=== PATIENT | male | born 1990 | race African-American/Black ===

== ENCOUNTER 2017-06-28 17:05 | Emergency (ER) | payer SELFPAY ==
[~2017-06-28] VITALS: Ht 175.3 cm; Wt 81.6 kg
[2017-06-28 17:11] VITALS: BP 105/66
--- NOTE | 2017-06-28 17:41 | Emergency Room Report ---
History of Present Illness General Chief Complaint: Lower Extremity Injury Source: Patient Present Illness HPI 26-year-old male presents to the emergency department complaining of 8 out of 10 in severity pain, swelling, tenderness to the left knee 2 weeks. Patient reports acute onset of his symptoms after he hit his knee against a night- stand. Patient states she's been trying rest and ice however he states that his symptoms have not resolved and he continues to have pain. 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 Patient denies history of injuries to this extremity in the past. Denies numbness tingling or loss of sensation or gross motor movements of the extremities, incontinence of bowel or bladder. Denies CP, Palpitations, LOC, AMS , dizziness, Changes in Vision, Sensation, paresthesias, or a sudden severe headache. Allergies: Coded Allergies: No Known Allergies (Unverified , 06/28/17) Patient History Past Medical History: see triage record Past Surgical History: none Pertinent Family History: none Reviewed Nursing Documentation: PMH: Agreed; PSxH: Agreed Nursing Documentation-PMH Past Medical History: No Stated History Review of Systems All Other Systems: negative except mentioned in HPI Physical Exam Vital Signs Date Time Temp Pulse Resp B/P (MAP) Pulse Ox O2 Delivery O2 Flow Rate FiO2 06/28/17 17:11 97.4 62 18 105/66 98 Room Air 97.3 Sp02 EP Interpretation: reviewed, normal General Appearance: no apparent distress, alert, GCS 15, non-toxic Head: normocephalic, atraumatic ENT: hearing grossly normal, normal voice Neck: full range of motion Respiratory: lungs clear, normal breath sounds, speaking full sentences Cardiovascular #1: regular rate, rhythm, no edema Genitourinary: normal inspection Musculoskeletal: back normal, gait/station normal - compensating on the right side, normal range of motion, swelling - left lateral upper quadrant of the knee , other - no increased laxity upon varus or valgus stressing, negative anterior and posterior drawer signs on examination of the left knee Neurologic: alert, oriented x3, responsive, motor strength/tone normal, sensory intact, speech normal, grossly normal Psychiatric: judgement/insight normal Skin: normal color, no rash, warm/dry, well hydrated Medical Decision Making PA Attestation Dr. Bishop is my supervising Physician whom patient management has been discussed with. Diagnostic Impression: Primary Impression: Knee pain, left Qualified Codes: M25.562 - Pain in left knee Additional Impression: Knee effusion, left ER Course 26-year-old male presents to the emergency department complaining of 8 out of 10 in severity pain, swelling, tenderness to the left knee 2 weeks. Patient reports acute onset of his symptoms after he hit his knee against a night- stand. Patient states she's been trying rest and ice however he states that his symptoms have not resolved and he continues to have pain. 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 Patient denies history of injuries to this extremity in the past. Denies numbness tingling or loss of sensation or gross motor movements of the extremities, incontinence of bowel or bladder. Denies CP, Palpitations, LOC, AMS , dizziness, Changes in Vision, Sensation, paresthesias, or a sudden severe headache. Ddx considered but are not limited to Fracture, dislocation, contusion, Sprain/ Strain/Spasm, meniscal injury just to name a few Vital signs: are WNL, pt. is afebrile H&PE are most consistent with musculoskeletal injury will perform imaging to r/ o fractures/dislocations. ORDERS: - X-ray Left Knee 3 views - negative for fx, Dislocation, or significant soft tissue injury, per preliminary read in ED, and signed by BOY Dozier , my supervising physician has reviewed, and agrees with my interpretation. ED INTERVENTIONS: - Left knee immobilizer applied by sonography technician. to the left knee, Pt. remains neurovascularly intact. -Patient is provided with crutches and instructed on their use DISCHARGE: At this time pt. is stable for d/c to home. Will provide printed patient care instructions, and any necessary prescriptions. Care plan and follow up instructions have been discussed with the patient prior to discharge. Other X-Ray Diagnostic Results Other X-Ray Diagnostic Results : X-Ray ordered: Left Knee # of Views/Limited Vs Complete: 3 View Indication: Pain EP Interpretation: Yes BOY Xray: Interpretation reviewed, by supervising MD, and agrees with findings. Interpretation: no dislocation, no soft tissue swelling, no fractures Impression: No acute disease Electronically Signed by: Gissel Dozier PA-C Last Vital Signs Date Time Temp Pulse Resp B/P (MAP) Pulse Ox O2 Delivery O2 Flow Rate FiO2 06/28/17 17:11 97.4 62 18 105/66 98 Room Air 97.3 Disposition: HOME, SELF-CARE Condition: Stable Scripts Naproxen* (NAPROXEN*) 500 Mg Tablet. 500 MG ORAL TWICE A DAY for 7 Days, #14 TAB Prov: Gissel Dozier 06/28/17 Patient Instructions: Knee Pain Additional Instructions: Take medications as directed. Follow up with a Primary Care Provider in 3-5 days, even if your symptoms have resolved. --Please review list of primary care clinics, if you do not already have a primary care provider Return sooner to ED if new symptoms occur, or current symptoms become worse. - Please note that this Emergency Department Report was dictated using [employer] software developer technology software, occasionally this can lead to erroneous entry secondary to interpretation by the dictation equipment. Gissel Dozier Jun 28, 2017 17:41
[2017-06-28] MEDS ORDERED: NAPROXEN500 M1 ORAL (18:00)
--- NOTE | 2017-06-29 08:35 | Diagnostic Imaging Report ---
Indication: Pain, injury, trauma Technique: 3 views of the left knee Comparison: none Findings: No acute fractures. No dislocations. Joint spaces are preserved Impression: Negative
[2017-06-29] MEDS ORDERED: NKM (13:04)
== END 2017-06-28 18:20 | disposition home or self-care (01) ==
LOC: EMR 18:19
DX: M25.562 Pain in left knee (principal); M25.462 Effusion, left knee
CPT/HCPCS: 99283

== ENCOUNTER 2017-06-29 12:52 | Emergency (ER) | payer OTHER ==
[~2017-06-29] VITALS: Ht 165.1 cm; Wt 77.1 kg
[~2017-06-29 12:52] MED LIST: NAPROXEN500 M1 ORAL
[2017-06-29] MEDS ORDERED: NKM (13:04)
[2017-06-29 13:34] VITALS: BP 124/55
--- NOTE | 2017-06-29 13:47 | Emergency Room Report ---
History of Present Illness General Chief Complaint: Pain Source: Patient Present Illness HPI patient is a 26-year-old male with history Of chronic left knee pain. Patient was here yesterday for the same complaint. X-rays were ordered and soft tissue swelling was observed. Patient was told to follow up with primary care provider and have MRIs of the knee. Patient was also given prescription for naproxen and a list of free clinics. Patient is here today for the same complaint within the pain has not subsided. Patient mentions that he did not take any naproxen. And appears confused where to go for MRI. Patient denies any changes in tingling or numbness sensation. She reports feeling a muscle pulling his knee upward. Patient is acting in knee immobilizer and using crutches. He rates his pain 10 out of 10 and constant. Denies vascular compromise, shortness of breath, chest pain, palpitation, dizziness, loss of balance. Allergies: Coded Allergies: No Known Allergies (Unverified , 06/28/17) Patient History Past Medical History: see triage record Past Surgical History: none Pertinent Family History: none Reviewed Nursing Documentation: PMH: Agreed; PSxH: Agreed Nursing Documentation-PMH Past Medical History: No Stated History Review of Systems All Other Systems: negative except mentioned in HPI Physical Exam Vital Signs Date Time Temp Pulse Resp B/P (MAP) Pulse Ox O2 Delivery O2 Flow Rate FiO2 06/29/17 13:02 97.4 65 18 124/55 97 Room Air 97.3 Sp02 EP Interpretation: reviewed, normal General Appearance: no apparent distress, alert, GCS 15, non-toxic Head: normocephalic, atraumatic Eyes: bilateral eye normal inspection, bilateral eye PERRL Neck: full range of motion, supple, supple/symm/no masses Respiratory: chest non-tender, lungs clear, normal breath sounds, no rhonchi, no wheezing, speaking full sentences Cardiovascular #1: regular rate, rhythm, no edema, no murmur Cardiovascular #2: 2+ dorsalis pedis (R), 2+ dorsalis pedis (L) Gastrointestinal: normal inspection Rectal: deferred Genitourinary: normal inspection Musculoskeletal: back normal, non-tender, no calf tenderness, decreased range of motion - left knee immobilized , other - left knee reduced ROM and stablized with knee immobilizer no sign of vascular compromise or sensory deficit Neurologic: alert, oriented x3, responsive, motor strength/tone normal, sensory intact, speech normal Psychiatric: judgement/insight normal, memory normal, mood/affect normal, no suicidal/homicidal ideation Skin: normal color, no rash, warm/dry, well hydrated Lymphatic: no adenopathy Medical Decision Making PA Attestation Dr. Jerome is my supervising physician and agrees to tx and plan Diagnostic Impression: Primary Impression: Knee pain Qualified Codes: M25.562 - Pain in left knee ER Course patient is a 26-year-old male with history Of chronic left knee pain. Patient was here yesterday for the same complaint. X-rays were ordered and soft tissue swelling was observed. Patient was told to follow up with primary care provider and have MRIs of the knee. Patient was also given prescription for naproxen and a list of free clinics. Patient is here today for the same complaint within the pain has not subsided. Patient mentions that he did not take any naproxen. And appears confused where to go for MRI. Patient denies any changes in tingling or numbness sensation. She reports feeling a muscle pulling his knee upward. Patient is acting in knee immobilizer and using crutches. He rates his pain 10 out of 10 and constant. Denies vascular compromise, shortness of breath, chest pain, palpitation, dizziness, loss of balance. Ddx considered but are not limited to meniscus tear, ligament tear, neuropathic pain Vital signs: are WNL, pt. is afebrile H&PE are most consistent with chronic knee pain ORDERS: none required at this time, the diagnosis is clinical ED INTERVENTIONS:and follow-up with primary care provider. MRI needed. patient to follow-up with free clinics and take naproxen as needed for pain DISCHARGE: At this time pt. is stable for d/c to home. Will provide printed patient care instructions, and any necessary prescriptions. Care plan and follow up instructions have been discussed with the patient prior to discharge. Last Vital Signs Date Time Temp Pulse Resp B/P (MAP) Pulse Ox O2 Delivery O2 Flow Rate FiO2 06/29/17 13:34 97.3 65 18 124/55 97 Room Air 97.3 Disposition: HOME, SELF-CARE Condition: Stable Patient Instructions: Knee Pain Additional Instructions: follow-up with PCP. Take pain medication as directed. Return to the ED if symptoms worsen Martinez Kim Jun 29, 2017 13:47
== END 2017-06-29 13:50 | disposition home or self-care (01) ==
LOC: EMR 13:48
DX: M25.562 Pain in left knee (principal)
CPT/HCPCS: 99282